=== PATIENT | female | born 2000 | race African-American/Black ===

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

== ENCOUNTER 2019-03-14 16:34 | Emergency (ER) | payer SELFPAY ==
[~2019-03-14] VITALS: Ht 157.5 cm; Wt 91.0 kg
[2019-03-14 18:25] VITALS: BP 120/62
[2019-03-14] MEDS ORDERED: SODIUM CHLORIDE 0.9% 1,000 ML IV ONE (18:25)
[2019-03-14 19:20] LABS: CLARITY URINE CLOUDY (CLEAR); COLOR URINE DARK YELLOW (YELLOW); KETONES URINE 1+ (NEGATIVE); LEUKOCYTE ESTERASE URINE NEGATIVE (NEGATIVE); NITRITE URINE NEGATIVE (NEGATIVE); OCCULT BLOOD URINE NEGATIVE (NEGATIVE); PH URINE 6.5 (4.5-8.0); PROTEIN URINE 2+ (NEGATIVE); SPECIFIC GRAVITY URINE 1.034 (1.005-1.030)
[2019-03-14 19:57] LABS: *AMPHETAMINES SCREEN URINE NEGATIVE (NEGATIVE); *BARBITURATES SCREEN URINE NEGATIVE (NEGATIVE); *BENZODIAZEPINES SCREEN URINE NEGATIVE (NEGATIVE); *COCAINE SCREEN URINE NEGATIVE (NEGATIVE); METHADONE URINE SCREEN NEGATIVE (NEGATIVE)
[2019-03-14 19:58] LABS: OPIATES URINE SCREEN NEGATIVE (NEGATIVE); PHENCYCLIDINE URINE SCREEN NEGATIVE (NEGATIVE)
[2019-03-14 20:16] LABS: CANNABINOID URINE SCREEN PRESUMTIVE POSITIVE (NEGATIVE)
== END 2019-03-14 18:50 | disposition left against medical advice (07) ==
LOC: ER 16:34
DX: O26.891 Other specified pregnancy related conditions, first trimester (principal); R10.2 Pelvic and perineal pain; E66.01 Morbid (severe) obesity due to excess calories; R03.0 Elevated blood-pressure reading, without diagnosis of hypertension; F12.10 Cannabis abuse, uncomplicated; F41.9 Anxiety disorder, unspecified; O99.511 Diseases of the respiratory system complicating pregnancy, first trimester; J45.909 Unspecified asthma, uncomplicated; Z88.6 Allergy status to analgesic agent; Z68.36 Body mass index [BMI] 36.0-36.9, adult; Z3A.01 Less than 8 weeks gestation of pregnancy
CPT/HCPCS: 80305; 81003; 99283; J7030; Z7610

== ENCOUNTER 2019-06-02 23:53 | Observation (INO) | payer SELFPAY ==
[~2019-06-02] VITALS: Ht 157.5 cm; Wt 95.3 kg
[2019-06-03] MEDS ORDERED: DEXT 5%/LACTATED RINGERS 1,000 ML IV SCH (01:15)
[2019-06-03 01:49] LABS: CLARITY URINE CLOUDY (CLEAR); COLOR URINE DARK YELLOW (YELLOW); KETONES URINE 1+ (NEGATIVE); LEUKOCYTE ESTERASE URINE TRACE (NEGATIVE); NITRITE URINE POSITIVE (NEGATIVE); OCCULT BLOOD URINE NEGATIVE (NEGATIVE); PH URINE 5.5 (4.5-8.0); PROTEIN URINE 1+ (NEGATIVE); SPECIFIC GRAVITY URINE 1.039 (1.005-1.030)
== END 2019-06-03 05:00 | disposition home or self-care (01) ==
LOC: 8 EST LDRP 23:53
PROVIDERS: ADMIT Obstetrics & Gynecology; ATTEND Obstetrics & Gynecology
DX: O26.893 Other specified pregnancy related conditions, third trimester (principal); M54.9 Dorsalgia, unspecified; Z3A.29 29 weeks gestation of pregnancy
CPT/HCPCS: 76805; 76818; 81003; G0378; 96360; 96361; 99281

== ENCOUNTER 2019-08-17 00:41 | Observation (INO) | payer MEDICAID ==
[~2019-08-17] VITALS: Ht 157.5 cm; Wt 108.0 kg
[2019-08-17] MEDS ORDERED: ACETAMINOPHEN 500MG TABLET PO SCH (02:00)
== END 2019-08-17 04:18 | disposition home or self-care (01) ==
LOC: 8 EST LDRP 00:41
PROVIDERS: ADMIT Obstetrics & Gynecology; ATTEND Obstetrics & Gynecology
DX: O26.893 Other specified pregnancy related conditions, third trimester (principal); M54.9 Dorsalgia, unspecified; R10.30 Lower abdominal pain, unspecified; O62.9 Abnormality of forces of labor, unspecified; Z3A.37 37 weeks gestation of pregnancy
CPT/HCPCS: 99281; G0378

== ENCOUNTER 2019-08-17 20:49 | Observation (INO) | payer MEDICAID ==
[~2019-08-17] VITALS: Ht 157.5 cm; Wt 98.9 kg
[2019-08-17] MEDS ORDERED: LACTATED RINGERS 1,000 ML IV SCH (21:34)
[2019-08-17] MEDS ORDERED: BUTORPHANOL TARTRATE 2 MG/ML VIAL IV PRN (22:21)
[2019-08-17 22:29] LABS: BASOPHILS % 0.2 % (0.0-2.0); EOSINOPHILS % 0.3 % (0.0-5.0); HEMATOCRIT. 30.2 % (36.0-48.0); LYMPHOCYTES % 41.2 % (20.0-50.0); MEAN CORPUSCULAR VOLUME 84.6 fL (81.0-99.0); MEAN PLATELET VOLUME 8.5 fl (7.4-10.4); MONOCYTES % 7.4 % (2.0-8.0); NEUTROPHILS % 50.9 % (40.0-76.0); PLATELET 247 x1000/uL (130-400); RED BLOOD CELL COUNT 3.57 mill/uL (4.2-5.4); RED CELL DISTRIBUTION WIDTH 13.7 % (11.6-14.6)
[2019-08-17] MEDS: LACTATED RINGERS 1,000 ML IV SCH (22:33)
[2019-08-17 22:35] VITALS: BP 161/83
[2019-08-17 22:40] LABS: INR 0.9; PARTIAL THROMBOPLASTIN TIME 26.6 sec (23.4-31.0); PROTHROMBIN TIME 9.2 sec (9.6-11.0)
[2019-08-17 22:44] LABS: CHLORIDE 108 mEq/L (98-107)
[2019-08-17 23:11] LABS: HEPATITIS B SURFACE ANTIGEN NEGATIVE
[2019-08-17 23:53] LABS: CLARITY URINE CLEAR (CLEAR); COLOR URINE YELLOW (YELLOW); KETONES URINE 1+ (NEGATIVE); LEUKOCYTE ESTERASE URINE NEGATIVE (NEGATIVE); NITRITE URINE NEGATIVE (NEGATIVE); OCCULT BLOOD URINE NEGATIVE (NEGATIVE); PROTEIN URINE TRACE (NEGATIVE)
[2019-08-18 00:10] LABS: *AMPHETAMINES SCREEN URINE NEGATIVE (NEGATIVE); *BARBITURATES SCREEN URINE NEGATIVE (NEGATIVE)
[2019-08-18 00:11] LABS: *BENZODIAZEPINES SCREEN URINE NEGATIVE (NEGATIVE); *COCAINE SCREEN URINE NEGATIVE (NEGATIVE); CANNABINOID URINE SCREEN NEGATIVE (NEGATIVE); METHADONE URINE SCREEN NEGATIVE (NEGATIVE); OPIATES URINE SCREEN NEGATIVE (NEGATIVE); PHENCYCLIDINE URINE SCREEN NEGATIVE (NEGATIVE)
[2019-08-18] MEDS ORDERED: TERBUTALINE SULFATE 1MG/ML VIAL SUBCUT SCH (02:00)
[2019-08-18] MEDS: LACTATED RINGERS 1,000 ML IV SCH (04:32)
[2019-08-18] MEDS ORDERED: LACTATED RINGERS 1,000 ML IV SCH (09:30)
[2019-08-22 13:06] LABS: HIV 1 ABS Positive (Negative); HIV 2 ABS Negative (Negative); HIV SCREEN 4G Reactive (Non Reactive); INTERPRETATION HIV-1 Positive (.)
== END 2019-08-18 05:40 | disposition short-term general hospital (02) ==
LOC: 8 EST LDRP 20:49
PROVIDERS: ADMIT Obstetrics & Gynecology; ATTEND Obstetrics & Gynecology
DX: O26.893 Other specified pregnancy related conditions, third trimester (principal); M54.9 Dorsalgia, unspecified; R10.30 Lower abdominal pain, unspecified; O13.3 Gestational [pregnancy-induced] hypertension without significant proteinuria, third trimester; O62.9 Abnormality of forces of labor, unspecified; Z3A.37 37 weeks gestation of pregnancy
CPT/HCPCS: 36415; 76805; 76818; 80053; 80305; 81003; 84550; 85025; 85384; 85610; 85730; 86592; 86701; 86702; 86703; 86762; 86850; 86900; 86901; 87340; 87389; 96372; 96374; 99281; G0378; J0595; J3105; J7120

== ENCOUNTER 2021-02-28 18:56 | Observation (INO) | payer MEDICAID ==
[~2021-02-28] VITALS: Ht 160 cm; Wt 90.7 kg
[2021-02-28] MEDS ORDERED: BICT1TAB PO (20:22)
[2021-02-28] MEDS ORDERED: PREN1TAB23 PO (20:22)
[2021-02-28 21:55] LABS: BASOPHILS % 0.1 % (0.0-2.0); EOSINOPHILS % 0.3 % (0.0-5.0); HEMATOCRIT. 30.8 % (36.0-48.0); HEMOGLOBIN. 10.7 g/dL (12.0-16.0); MEAN CORPUSCULAR HEMOGLOBIN 30.3 pg (28.0-32.0); MEAN CORPUSCULAR VOLUME 86.8 fL (81.0-99.0); MEAN PLATELET VOLUME 7.2 fl (7.4-10.4); MONOCYTES % 6.2 % (2.0-8.0); NEUTROPHILS % 61.4 % (40.0-76.0); PLATELET 271 x1000/uL (130-400); RED BLOOD CELL COUNT 3.54 mill/uL (4.2-5.4); RED CELL DISTRIBUTION WIDTH 13.2 % (11.6-14.6)
== END 2021-02-28 23:45 | disposition home or self-care (01) ==
LOC: 8 EST LDRP 18:56
PROVIDERS: ADMIT Specialist; ATTEND Specialist
DX: O99.891 Other specified diseases and conditions complicating pregnancy (principal); M54.5 Low back pain; M79.673 Pain in unspecified foot; V43.92XA Unspecified car occupant injured in collision with other type car in traffic accident, initial encounter; Y93.89 Activity, other specified; Y92.488 Other paved roadways as the place of occurrence of the external cause
CPT/HCPCS: 36415; 59025; 76815; 85025; 86850; 86900; 86901; G0378; 99281